=== PATIENT | male | born 1940 | race Caucasian/White ===

== ENCOUNTER 2025-05-27 05:56 | Day surgery (SDC) | payer BC, SELFPAY ==
[2025-05-27] VITALS (15 sets, daily range): BP systolic 139–162; BP diastolic 72–95; BMI 33.1
[2025-05-27] MEDS: NSS 200 ML IV (07:22)
[2025-05-27] MEDS: LOW STRENGTH ASPIRIN 324 MG PO (07:31)
[2025-05-27 09:36] LABS: ACT-LR - POC 242 Seconds (116-155)
--- NOTE | 2025-05-27 10:07 | ITS.CL.CATH ---
Environmental Health Physician - Catheterization
Cardiac Catheterization
Procedure Report:
LEFT HEART CATHETERIZATION
Date of Procedure: May 27, 2025
Referring: Dr. René Dennis
PROCEDURES:
1. Coronary angiography
INDICATION: Severe symptomatic aortic stenosis
ACCESS: Right radial artery, 6 Romanian sheath. Unsuccessful access of right brachial vein. A sheath was placed and then removed with manual pressure held
HEMODYNAMICS : (mmHg)
AO (s/d) : 119/73
CORONARY FINDINGS
DOMINANCE: Codominant
LEFT MAIN: Mild distal tapering
LEFT ANTERIOR DESCENDING: There is very proximal 20% stenosis followed by an eccentric 70-80% LAD stenosis beyond the first septal international freight forwarder and involving the origin of the first diagonal branch. The remainder of the LAD has diffuse luminal
irregularities but no additional focal obstructive stenosis. The distal LAD wraps completely around the apex. The first diagonal branch arises from the stenotic segment in the mid LAD. The origin of the diagonal branch appears normal consistent
with a Méndez 1:0:0 lesion.
CIRCUMFLEX: The circumflex is a large-caliber codominant vessel supplying a sizable bifurcating OM1. The OM 1 bifurcates into larger and smaller daughter branches both which are widely patent.. The circumflex continues in the AV groove supplying a
small posterolateral branch and PDA
RIGHT CORONARY ARTERY: Small codominant vessel which tapers distally
SEDATION: 42 minutes of procedural sedation was utilized. An independent certified court/medical interpreter was present to assist with and help manage the patient's level of consciousness and physiologic status.
RADIATION SUMMARY: Fluoro Time (min): 6.5, Dose (mGy): 498, DAP (Gy.cm2) : 33.2
Closure Device: TR band
CONCLUSIONS
1. Angiographically significant stenosis in the mid LAD just beyond the first septal international freight forwarder and involving the origin of a small diagonal branch
RECOMMENDATIONS
1. Patient will be loaded with 600 mg of clopidogrel and begin aspirin 81 mg daily
2. He is scheduled to see Dr. Dennis in the office on 05/27/2025 at 11:30 AM
3. Will begin high intensity statin therapy and low-dose oral beta-adam
4. TAVR CT will be arranged
Copy to: Dr. René Dennis
[2025-05-27] MEDS: PLAVIX 600 MG PO (10:20)
[2025-05-27] MEDS: NSS 1000 IV (10:23)
--- NOTE | 2025-05-27 14:04 | CONSULT.STRU ---
Consultation
-
Date/Time Consultation Requested: 05/27/2025 1000
Date/Time Consultation Performed: 05/27/2025 1100
Requesting Provider: Dr. Connor Lau/ Dr. Magnolia Dennis
Performing Provider: SHILPA Campbell
Reason for Consultation: Severe aortic stenosis/ TAVR evaluation
Patient History
Physicians
Family Physician: SHILPA Miller
Outpatient Building Cleaning Supervisor: Dr. Connor Fernández
Primary Building Cleaning Supervisor: Dr. Connor Fernández
History of Present Illness
Mr. Denzel Tellez is a pleasant 85yo male who follows with Dr. Fernández and was noted to have progressive aortic stenosis on his most recent echocardiogram on 05/13/2025. His MG is now 36mmHg, no AI noted, MEGAN: 0.98cm2, peak velocity over 4m/s. EF
is 55%. Over the past few months he has been feeling fatigued and also feels lightheaded at risk. He is concerned because he is already a high fall risk because of significant peripheral neuropathy. 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 He underwent a
cardiac cath today that was significant for stenosis in the mid-LAD that will most likely require PCI. His medical history is also notable for HTN, chronic kidney disease (GFR 35) and sleep apnea (CPAP compliant). Reviewed with Mr. Tellez the
pathophysiology of aortic stenosis and treatment options including SAVR and TAVR. Explained the TAVR evaluation process and the need to spread this out due to his decreased kidney function. Next step is for him to follow up with Dr. Dennis on 05/30
to discuss symptoms in greater detail and formulate plan for treatment of his CAD. Provided with copy of TAVR education booklet, lab slip for BMP, CT TAVR chest scan appointment. Allowed for and answered questions.
Past Medical History
Past Medical History: CAD (mid LAD), Cancer (h/p prostate CA-radiation), CID, HTN, MARIA ALEJANDRA (CPAP), Radiation (prostate), Renal Insufficiency, Valvular Disease (Severe aortic stenosis, trace TR) and Other (Carotid [id number] 16-49%, left ICA 50-69%)
Past Surgical History
Past Surgical History: Orthopedic (bilateral TKR, left wrist surgery, back surgery) and Other (hernia repair x 2)
Dental History
Regular dental care- appointment 05/30/2025 Dr. Castaneda
Family History
Mother: at Age
Father: at Age
Social History
Alcohol: None
Drug: None
Tobacco: Non-Smoker
Personal:
Living: With Spouse
Employment: Retired
Allergies
Allergy/AdvReac Type Severity Reaction Status Date / Time
acetaminophen (From Vicodin) Allergy 'almost Verified 05/27/25 06:29
passed out'
hydrocodone (From Vicodin) Allergy 'almost Verified 05/27/25 06:29
passed out'
Home Medications
�Medication �Instructions �Recorded �Confirmed �Type
Chelatation 1.1 B12 + Edta 300 1 cap PO BID 05/27/25 05/27/25 History
Probiotic 1 tab PO DAILY 05/27/25 05/27/25 History
amlodipine 2.5 mg tablet 2.5 mg PO DAILY 05/27/25 05/27/25 History
ascorbic acid (vitamin C) 500 mg 500 mg PO DAILY 05/27/25 05/27/25 History
tablet (Vitamin C)
aspirin 81 mg chewable tablet 81 mg PO DAILY #1 tab 05/27/25 Rx
atorvastatin 40 mg tablet 40 mg PO QPM #90 tabs 05/27/25 Rx
bergamot extract 500 mg capsule 500 mg PO DAILY 05/27/25 05/27/25 History
cholecalciferol (vitamin D3) 50 50 mcg PO DAILY 05/27/25 05/27/25 History
mcg (2,000 unit) capsule (Vitamin
D3)
clopidogrel 75 mg tablet 75 mg PO DAILY #90 tabs 05/27/25 Rx
coenzyme Q10 100 mg capsule 100 mg PO DAILY 05/27/25 05/27/25 History
garlic 200 mg tablet 600 mg PO DAILY 05/27/25 05/27/25 History
glucosam-sod chondro-vit C-baljeet 1 tab PO DAILY 05/27/25 05/27/25 History
tablet
magnesium 200 mg tablet 400 mg PO DAILY 05/27/25 05/27/25 History
metoprolol succinate 25 mg 25 mg PO DAILY #90 tabs 05/27/25 Rx
tablet,extended release 24 hr
omega-3 fatty acids-fish oil 684 1 cap PO DAILY 05/27/25 05/27/25 History
mg-1,200 mg capsule,delayed release
pantoprazole 40 mg tablet,delayed 40 mg PO DAILY #90 tabs 05/27/25 Rx
release
resveratrol 250 mg capsule 250 mg PO DAILY 05/27/25 05/27/25 History
sodium bicarbonate 650 mg tablet 650 mg PO TID 05/27/25 05/27/25 History
testosterone 1.62 % (20.25 mg/1.25 20.25 mg topical DAILY 05/27/25 05/27/25 History
gram) transdermal gel packet
STS%
STS %: AVR: 4.01%, AVR/CAB.72%
Review of Systems
-
History Source: Patient
General: Reports Fatigue
HEENT: Reports No Symptoms
Respiratory: Reports CID; Denies Cough, Asthma or PND
Cardiac: Reports Palpitations; Denies Chest Pain, Known Vascular Disease or Edema
Abdomen/GI: Reports No Symptoms; Denies Abdominal Pain, Reflux, Nausea, Vomiting or Diarrhea
: Reports Frequency
Musculoskeletal: Reports No Symptoms
Skin: Reports No Symptoms
Neurological: Reports Dizzy and Other (peripheral neuropathy bilateral feet); Denies CVA or TIA
Vascular: Reports No Symptoms
Physical Exam
Vital Signs
Temp 97.7 F 05/27/25 06:20
Temp route: Oral 05/27/25 06:20
Pulse 65 05/27/25 12:56
Resp Rate 17 12/19/25 12:56
Blood pressure 140/82 05/27/25 12:57
Blood pressure extremity used: Left upper arm 05/27/25 10:15
Position: Lying 05/27/25 10:15
MAP (cuff-Rachael Monitor) 101 05/27/25 12:57
SaO2 98 05/27/25 12:56
Oxygen Mode of Delivery Room air 05/27/25 13:15
Can the patient verbally communicate their pain? Yes 05/27/25 13:15
Pain scale ratin 05/27/25 13:00
Actual Weight 126.7 kg 05/27/25 06:20
Body Mass Index (BMI) 33.1 05/27/25 06:20
Labs
05/18/2025:
H/H: 12.4/38.4
WBC: 5.65
Platelets: [id number]
BUN/Creat: 36/1.85
GFR: 35
Diagnostic Studies
05/13/2025 Echocardiogram -[facility]
LVEF 55%
AV M MEGAN: 0.98cm2, max velocity >4
05/27/2025 Cardiac Cath:
HEMODYNAMICS : (mmHg)
AO (s/d) : 119/73
CORONARY FINDINGS
DOMINANCE: Codominant
LEFT MAIN: Mild distal tapering
LEFT ANTERIOR DESCENDING: There is very proximal 20% stenosis followed by an eccentric 70-80% LAD stenosis beyond the first septal physician representative and involving the origin of the first diagonal branch. The remainder of the LAD has diffuse luminal
irregularities but no additional focal obstructive stenosis. The distal LAD wraps completely around the apex. The first diagonal branch arises from the stenotic segment in the mid LAD. The origin of the diagonal branch appears normal consistent
with a Méndez 1:0:0 lesion.
CIRCUMFLEX: The circumflex is a large-caliber codominant vessel supplying a sizable bifurcating OM1. The OM 1 bifurcates into larger and smaller daughter branches both which are widely patent.. The circumflex continues in the AV groove supplying a
small posterolateral branch and PDA
RIGHT CORONARY ARTERY: Small codominant vessel which tapers distally
SEDATION: 42 minutes of procedural sedation was utilized. An independent medical director of hospice was present to assist with and help manage the patient's level of consciousness and physiologic status.
RADIATION SUMMARY: Fluoro Time (min): 6.5, Dose (mGy): 498, DAP (Gy.cm2) : 33.2
Closure Device: TR band
CONCLUSIONS
1. Angiographically significant stenosis in the mid LAD just beyond the first septal physician representative and involving the origin of a small diagonal branch
RECOMMENDATIONS
1. Patient will be loaded with 600 mg of clopidogrel and begin aspirin 81 mg daily
2. He is scheduled to see Dr. Dennis in the office on 05/27/2025 at 11:30 AM
3. Will begin high intensity statin therapy and low-dose oral beta-adam
4. TAVR CT will be arranged
Exam
General: Well Developed, Well Nourished, No Apparent Distress and Comfortable
HEENT: Moist Mucous Membranes, PERRLA and EOMI
Neck: Trachea Midline
Respiratory: Clear; Negative Wheezes, Crackles or Rhonchi
Cardiac: S1/S2, Regular Rhythm and Murmur (Grade II/ [place])
GI: Soft, Non Tender, Non Distended and Normal Bowel Sounds
Rectal: Deferred by Provider
Skin: Warm and Dry
Neuro: AO x 3 and Nonfocal/Grossly Intact
Extremities: Negative Lower Level Edema
Psych: Calm
Assessment / Plan
-
Procedure Type:�Isolated AVR
Perioperative Outcome Estimate %
Operative Mortality 4.01%
Morbidity & Mortality 10.3%
Stroke 1.87%
Renal Failure 4.47%
Reoperation 2.92%
Prolonged Ventilation 4.52%
Deep Sternal Wound Infection 0.047%
Long Hospital Stay (>14 days) 5.42%
Short Hospital Stay (<6 days)* 28.1%
Procedure Type:�CABG + AVR
Perioperative Outcome Estimate %
Operative Mortality 5.72%
Morbidity & Mortality 15.4%
Stroke 1%
Renal Failure 5.97%
Reoperation 3.9%
Prolonged Ventilation 6.65%
Deep Sternal Wound Infection 0.086%
Long Hospital Stay (>14 days) 10.7%
Short Hospital Stay (<6 days)* 17%
Symptomatic Aortic Stenosis;
-Plan to continue TAVR evaluation as outpatient
-BMP 06/08/2025
-CT TAVR chest only with OID 06/21/2025
-Follow up BMP after CT scan
-Will need CTA abd/pelvis to assess access
-Discuss timing of PCI prior to TAVR
-Will need DAPT if proceeding with PCI
-CT surgery consult with Dr. Abdullahi 06/28/2025
-Dental clearance- appointment 05/30/2025
Coronary artery disease:
-follow up with Dr. Dennis on 05/30/2025 to discuss intervention to LAD stenosis
-Heart Healthy diet
-medications per cardiology recommendations.
Data Reviewed
-
EKG: Report Reviewed by me
Bucket Operator: Report Reviewed by me, Discussed with Physician and Discussed with Patient
Echo: Report Reviewed by me, Discussed with Physician and Discussed with Patient
Labs: Labs Reviewed by me and Discussed with Patient
Old Records: Reviewed (cardiology notes)
Total Time Spent with Patient (in minutes): 30
== END 2025-05-27 13:15 | disposition home or self-care (01) ==
LOC: CATH 05:56
PROVIDERS: ATTENDING PHYSICIAN Internal Medicine Interventional Cardiology; OTHER PHYSICIAN Internal Medicine Cardiovascular Disease; PRIMARYCARE PHYSICIAN Nurse Practitioner Family
DX: I35.0 Nonrheumatic aortic (valve) stenosis (principal); I25.10 Atherosclerotic heart disease of native coronary artery without angina pectoris; Z79.02 Long term (current) use of antithrombotics/antiplatelets; I12.9 Hypertensive chronic kidney disease with stage 1 through stage 4 chronic kidney disease, or unspecified chronic kidney disease; N18.9 Chronic kidney disease, unspecified; G47.33 Obstructive sleep apnea (adult) (pediatric); G62.9 Polyneuropathy, unspecified; Z79.82 Long term (current) use of aspirin; Z79.890 Hormone replacement therapy; Z79.899 Other long term (current) drug therapy; Z88.5 Allergy status to narcotic agent; Z91.81 History of falling; Z96.653 Presence of artificial knee joint, bilateral
CPT/HCPCS: 99152; 99153; 85347; 93454; C1769; C1894; Q9967